=== PATIENT | male | born 1940 | race Two or more races ===

== ENCOUNTER 2024-07-09 05:05 | Day surgery (SDC) | payer OTHER ==
[~2024-07-09 05:05] MED LIST: ECOTRIN81 MG PO; FINASTERIDE; LIPITOR20 MG; NORVASC10 MG PO; ZESTRIL5 MG PO; ZYLOPRIM100 M1 PO
[2024-07-09] MEDS ORDERED: MORPHINE SULFATE 4 MG/ML VIAL IV ONE (11:10)
[2024-07-09] MEDS ORDERED: CEFAZOLIN SODIUM 1,000 MG VIAL IV ONE (13:00)
[2024-07-09] MEDS ORDERED: POVIDONE-IODINE 118 ML BOTT TOP ONE (13:00)
[2024-07-09] MEDS ORDERED: TAMSULOSIN HCL 0.4 MG CAP PO STA (16:21)
== END 2024-07-09 17:05 | disposition home or self-care (01) ==
LOC: CIR.AMB 05:05
PROVIDERS: ATTEND Surgery
DX: K40.90 Unilateral inguinal hernia, without obstruction or gangrene, not specified as recurrent (principal); I10 Essential (primary) hypertension; H52.10 Myopia, unspecified eye
CPT/HCPCS: 49650; C1781; S2900